=== PATIENT | male | born 1960 | race Caucasian/White ===

== ENCOUNTER 2022-07-09 14:20 | Emergency (ER) | payer BC, OTHER ==
[2022-07-09 14:42] VITALS: BP 140/84; PULSE 90; RESP 18; TEMP 97.9
[2022-07-09] MEDS ORDERED: ORPHENADRINE 30 MG/ML 2 ML VIAL IM STA (16:00)
[2022-07-09] MEDS ORDERED: CYCLOBENZAPRINE 10MG STARTER 3 TAB BTL PO STA (16:50)
--- NOTE | 2022-07-09 16:59 | ED ---
Lower Extremity Injury HPI - General Chief Complaint: Extremity Injury, Lower Stated Complaint: R leg injury Time Seen by Provider: 07/09/22 15:11 Source: patient Mode of arrival: ambulatory Limitations: no limitations - History of Present Illness Initial Comments: Patient is a 61-year-old male presenting with chief complaint of right hamstring pain. Patient states that while he was trying to catch his dog pain started flaring up. Patient had an initial injury approximately 1 month ago, today his activities caused flareup of pain. No back pain, numbness, tingling, weakness. Patient is able to bear weight and ambulate without much difficulty. He took 2 naproxen earlier today which provided moderate pain relief. No discoloration. - Related Data Previous Rx's Medication Instructions Recorded Cyclobenzaprine [Flexeril] 10 mg PO HS PRN #15 tab 07/09/22 Allergies Allergy/AdvReac Type Severity Reaction Status Date / Time No Known Allergies Allergy Verified 07/09/22 16:15 Review of Systems ROS Statement: Those systems with pertinent positive or pertinent negative responses have been documented in the HPI. ROS Other: All systems not noted in ROS Statement are negative. Past Medical History Past Medical History: Hyperlipidemia, Hypertension, Thyroid Disorder Past Surgical History: No Surgical Hx Reported Smoking Status: Never smoker Past Alcohol Use History: None Reported Past Drug Use History: None Reported General Exam Limitations: no limitations General appearance: alert, in no apparent distress Head exam: Present: atraumatic, normocephalic, normal inspection Eye exam: Present: normal appearance Neck exam: Present: normal inspection Extremities exam: Present: tenderness (Some tenderness and mild swelling noted over the right hamstring) Neurological exam: Present: alert, oriented X3, CN II-XII intact, normal gait Psychiatric exam: Present: normal affect, normal mood Skin exam: Present: warm, dry, intact, normal color. Absent: rash Course Vital Signs 07/09/22 14:38 Temperature 97.9 F Pulse Rate 90 Respiratory 18 Rate Blood Pressure 140/84 O2 Sat by Pulse 99 Oximetry Medical Decision Making - Medical Decision Making Patient is a 61-year-old male presenting with chief complaint of right hamstring pain. Patient has an old injury to the area and believes he may provokes the pain today while chasing his dog. On physical examination there is some mild swelling over the right hamstring. Patient is able to ambulate and stand with no difficulty. Patient was given Norflex, on reassessment he reports improvement in pain. He is sent home with a prescription for cyclobenzaprine and instructed to follow up with orthopedics. Follow-up with PCP. Report back to ER with any new or worsening symptoms. Discussed return parameters and answered all questions. Patient conveyed verbal understanding and agreed to the plan. I discussed this case in detail with my attending Dr. Strickland Disposition Clinical Impression: Hamstring muscle strain Disposition: HOME SELF-CARE Condition: Good Instructions (If sedation given, give patient instructions): Hamstring Injury (ED) Additional Instructions: Follow up with orthopedics. Report back to ER with any new or worsening symptoms. Take medication as prescribed. Do not take cyclobenzaprine prior to driving or operating heavy machinery as it may cause drowsiness. Alternate Motrin and Tylenol as needed. Prescriptions: Cyclobenzaprine [Flexeril] 10 mg PO HS PRN #15 tab PRN Reason: Spasms Is patient prescribed a controlled substance at d/c from ED?: No Referrals: Ishaan Gamez DO [Primary Care Provider] - 1-2 days Baudilio William MD [STAFF PHYSICIAN] - 1-2 days Time of Disposition: 16:59
[2022-07-09] MEDS ORDERED: ACET/COD 300 MG/30 MG STARTER PACK 6 TAB BTL PO STA (17:00)
== END 2022-07-09 17:07 | disposition home or self-care (01) ==
LOC: EC 14:20
DX: S76.312A Strain of muscle, fascia and tendon of the posterior muscle group at thigh level, left thigh, initial encounter (principal); I10 Essential (primary) hypertension; X50.9XXA Other and unspecified overexertion or strenuous movements or postures, initial encounter
CPT/HCPCS: 99283; 96372; J2360

== ENCOUNTER → 2024-08-07 | Outpatient (CLI) | payer OTHER ==
--- NOTE | 2024-08-07 10:14 | MR ---
EXAMINATION TYPE: MR knee RT wo con DATE OF EXAM: 08/07/2024 COMPARISON: NONE HISTORY: Pain and swelling. Internal derangement rule out medial meniscal tear. TECHNIQUE: Multiplanar, multisequence images of the knee is performed without IV contrast. FINDINGS: MEDIAL MENISCUS: Anterior and posterior horns are intact without tear. LATERAL MENISCUS: Lateral extrusion lateral meniscus with abnormal signal. The lateral aspect of the posterior horn of the lateral meniscus is not identified. There is some irregular signal seen in the deeper aspect sagittal image 24. Suspect displaced meniscal fragment. CRUCIATE LIGAMENTS: The anterior and posterior cruciate ligaments are intact and unremarkable. COLLATERAL LIGAMENTS: The medial collateral ligament and lateral collateral ligament complex are inta ct. Some edema surrounds the proximal portion of the lateral collateral ligament complex. EXTENSOR MECHANISM: Visualized quadriceps and patellar tendons are intact. EFFUSION: Small to moderate size suprapatellar joint effusion. POPLITEAL CYST: Leaking small size popliteal/cabrera cyst. TRICOMPARTMENT SPACES: Mild to moderate tricompartment joint space loss and mild spurring. CARTILAGE: Tricompartment articular cartilage is preserved. BONE MARROW SIGNAL: Focus of increased T2 signal lateral aspect lateral tibial plateau measuring appr oximately 1.4 cm transversely by 1.7 cm AP diameter coronal image 20 and sagittal image 26. OTHER: Mild to moderate anterior subcutaneous edema. IMPRESSION: 1. Full-thickness displaced tear through the posterior horn and central body of the lateral meniscus if there has been no history of prior surgery, correlate clinically. 2. Small to moderate sized suprapatellar joint effusion. 3. Small leaking popliteal cyst. 4. Mild to moderate tricompartment degenerative changes. 5. Small focus of abnormal bone marrow edema involving the lateral tibial plateau. 6. Mild LCL sprain injury. [facility], , 08/07/2024 10:11 AM
== END | disposition home or self-care (01) ==
LOC: RADMRIMAIN 08:35
PROVIDERS: ATTEND Orthopaedic Surgery
DX: S83.281A Other tear of lateral meniscus, current injury, right knee, initial encounter (principal); M17.11 Unilateral primary osteoarthritis, right knee; M71.21 Synovial cyst of popliteal space [Baker], right knee; X58.XXXA Exposure to other specified factors, initial encounter; R60.9 Edema, unspecified